=== PATIENT | male | born 1955 | race Hispanic/Latino ===

== ENCOUNTER 2017-08-12 14:21 | Emergency (ER) | payer OTHER, SELFPAY ==
[~2017-08-12 14:21] MED LIST: ISOVUE-370 76%-LOCM 1 ML ONE
[2017-08-12 15:03] LABS: #Basophils 0.1 thou/uL (0.0-0.2); #Eosinphils 0.4 thou/uL (0.0-0.7); #Lymphocytes 2.5 thou/uL (1.20-3.40); #Monocytes 0.6 thou/uL (0.11-0.59); #Neutrophils 6.5 thou/uL (1.40-6.50); %Lymphocytes 24.9 % (21.0-51.0); %Monocytes 6.3 % (0.0-10.0); %Neutrophils 63.8 % (42.0-75.0); Hemoglobin 14.2 g/dL (14.0-18.0); Mean Corpuscular HGB CONC 34.7 g/dL (32.0-36.0); Mean Corpuscular Hemoglobin 31.7 pg (27.0-31.0); Mean Corpuscular Volume 91.3 fl (80.0-94.0); Mean Platelet Volume 5.6 fL (7.4-10.4); Platelet Count 370 thou/uL (130-400); Red Blood Cell (RBC) Count 4.46 mill/uL (4.70-6.10); White Blood Cell (WBC) Count 10.1 thou/uL (4.8-10.8)
[2017-08-12 15:09] LABS: Bilirubin Negative (Negative); Blood, Urine Negative (Negative); Clarity CLEAR (Clear); Glucose, Urine (Dipstick) Negative (Negative); Leukocyte Negative (Negative); Nitrite Negative (Negative); Protein, Urine (Dipstick) Negative (Neg-Trace); Specific Gravity, Urine 1.006 (1.002-1.036); Urobilinogen 0.2 mg/dL (0.2-1.0)
[2017-08-12 15:12] LABS: Lactic Acid 1.7 mmol/L (0.5-2.2)
[2017-08-12 15:18] LABS: ALT (SGPT) 20 U/L (8-55); AST (SGOT) 21 U/L (5-34); Albumin 4.7 g/dL (3.4-4.8); Alkaline Phosphatase 109 U/L (40-150); Anion Gap 12 mmol/L (10-20); BUN (Urea Nitrogen) 14 mg/dL (8.4-25.7); Bilirubin, Total 0.5 mg/dL (0.2-1.2); Calc. Creatinine Clearance 0 mL/min (70-130); Calcium 9.5 mg/dL (7.8-10.44); Carbon Dioxide 22 mmol/L (23-31); Chloride 103 mmol/L (98-107); Estimated GFR-MDRD Greater than 90; Globulin 3.2 g/dL (2.4-3.5); Glucose 110 mg/dL (80-115); Lipase 114 U/L (8-78); Potassium 3.4 mmol/L (3.5-5.1); Protein, Total 7.9 g/dL (5.8-8.1); Sodium 134 mmol/L (136-145)
[2017-08-12] MEDS ORDERED: Morphine 4 MG/ML VIAL ONE ×3 (15:34→18:26)
[2017-08-12] MEDS ORDERED: Ondansetron HCl/PF 4 MG/2 ML Vial ONE ×2 (15:34→16:47)
--- NOTE | 2017-08-12 16:55 | CT ---
CT ABDOMEN AND PELVIS WITH IV CONTRAST 08/12/17 HISTORY: Abdominal pain. Ventral abdominal wall hernia. Patient has complained of abdominal pain for four days . COMPARISON: None available. FINDINGS: There are minimal ground glass densities at each lung base probably related to atelectasis. Calcified right hilar lymph nodes are present. Mild vascular calcifications are seen in the abdominal aorta and involving the iliac arteries. Degenerative changes are present in the spine. Calcified granulomata are seen in the liver and spleen. The pancreas, bilateral adrenal glands, right kidney, and urinary bladder demonstrate a normal CT appearance. There is a punctate nonobstructing i nferior pole left renal calculus. Left kidney otherwise has a normal CT appearance. There is colonic diverticulosis. The appendix is visualized and filled with gas and is normal in caliber. IMPRESSION: 1. No acute findings are seen in the abdomen or pelvis. 2. Punctate nonobstructing left renal calculus. 3. Colonic diverticulosis. 4. No CT evidence of appendicitis. POS: [facility]
== END 2017-08-12 18:35 | disposition home or self-care (01) ==
LOC: ERS 14:21
DX: R10.13 Epigastric pain (principal); R10.32 Left lower quadrant pain; R10.31 Right lower quadrant pain; R10.33 Periumbilical pain; R11.0 Nausea; I10 Essential (primary) hypertension; F17.210 Nicotine dependence, cigarettes, uncomplicated; Z79.82 Long term (current) use of aspirin; Z79.899 Other long term (current) drug therapy
CPT/HCPCS: 74177; 80053; 81003; 83605; 83690; 85025; 96361; 96374; 96375; 96376; J2270; J2405

== ENCOUNTER 2017-09-03 17:44 | Emergency (ER) | payer SELFPAY ==
[2017-09-03] MEDS ORDERED: Ondansetron ODT 4 MG TAB ONE (18:30)
[2017-09-03 18:31] LABS: #Basophils 0.1 thou/uL (0.0-0.2); #Eosinphils 0.3 thou/uL (0.0-0.7); #Lymphocytes 2.4 thou/uL (1.20-3.40); #Monocytes 0.6 thou/uL (0.11-0.59); #Neutrophils 5.7 thou/uL (1.40-6.50); %Basophils 0.8 % (0.0-1.0); %Eosinophils 3.4 % (0.0-10.0); %Lymphocytes 26.1 % (21.0-51.0); %Neutrophils 62.8 % (42.0-75.0); Hemoglobin 13.4 g/dL (14.0-18.0); Mean Corpuscular HGB CONC 34.6 g/dL (32.0-36.0); Mean Corpuscular Hemoglobin 31.5 pg (27.0-31.0); Mean Platelet Volume 5.7 fL (7.4-10.4); Platelet Count 384 thou/uL (130-400); Red Blood Cell (RBC) Count 4.25 mill/uL (4.70-6.10); White Blood Cell (WBC) Count 9.1 thou/uL (4.8-10.8)
[2017-09-03 18:55] LABS: ALT (SGPT) 18 U/L (8-55); AST (SGOT) 18 U/L (5-34); Albumin 4.6 g/dL (3.4-4.8); Alkaline Phosphatase 107 U/L (40-150); Anion Gap 13 mmol/L (10-20); BUN (Urea Nitrogen) 18 mg/dL (8.4-25.7); Bilirubin, Total 0.5 mg/dL (0.2-1.2); Calc. Creatinine Clearance 0 mL/min (70-130); Calcium 9.4 mg/dL (7.8-10.44); Carbon Dioxide 22 mmol/L (23-31); Chloride 106 mmol/L (98-107); Estimated GFR-MDRD Greater than 90; Globulin 3.2 g/dL (2.4-3.5); Glucose 96 mg/dL (80-115); Potassium 3.8 mmol/L (3.5-5.1); Protein, Total 7.8 g/dL (5.8-8.1); Sodium 137 mmol/L (136-145)
[2017-09-03 18:56] LABS: CKMB 1.6 ng/mL (0-6.6); Troponin I 0.024 ng/mL (< 0.028)
[2017-09-03 19:24] LABS: Bilirubin Negative (Negative); Blood, Urine Trace (Negative); Clarity CLEAR (Clear); Glucose, Urine (Dipstick) Negative (Negative); Leukocyte Negative (Negative); Nitrite Negative (Negative); Protein, Urine (Dipstick) 100 mg/dL (Neg-Trace)
[2017-09-03 19:27] LABS: Bacteria/HPF None Seen HPF (None Seen); Hyaline Casts/LPF 4-6 HYALINE CAST LPF (0-3 Hyaline); Pathc Cast-AUWi Flag 0.14 (0-2.49); Squamous Epithelial 0-3 HPF (0-3)
--- NOTE | 2017-09-03 19:50 | RAD ---
SINGLE VIEW OF THE CHEST: Comparison: 10-09-15 History: Hypertension. FINDINGS: Single view of the chest shows a normal sized cardiomediastinal silhouette. There is no evidence of c onsolidation, mass, or pleural effusion. Degenerative changes are seen in the spine. IMPRESSION: No evidence of acute cardiopulmonary disease. POS: [facility]
[2017-09-03] MEDS ORDERED: diphenhydrAMINE 50 MG/ML VIAL ONE ×2 (20:45→23:18)
[2017-09-03] MEDS ORDERED: Promethazine HCl 25 MG/ML VIAL ONE ×2 (20:45→23:18)
[2017-09-03] MEDS ORDERED: Metoprolol Tartrate 50 MG TAB ONE (20:45)
--- NOTE | 2017-09-03 22:00 | CT ---
CT BRAIN WITHOUT CONTRAST: History: Headache. Technique: Multiple contiguous axial images were obtained in a CT of the brain without contrast. FINDINGS: The brain is normal in morphology and attenuation without focal lesions or confluent areas of infarct ion. There is no evidence of hydrocephalus, intracranial hemorrhage, or extraaxial fluid collections. The calvarium and overlying soft tissues are unremarkable. The visualized paranasal sinuses and mastoids are well aerated. IMPRESSION: No evidence of acute intracranial abnormality. POS: [facility]
--- NOTE | 2017-09-03 22:02 | RAD ---
TWO VIEWS ABDOMEN AND FRONTAL VIEW OF THE CHEST: History: Left lower quadrant abdominal pain, chest pain. FINDINGS: Supine and upright views of the abdomen and upright view of the chest shows a nonspecific, nonobstruc walter bowel gas pattern. Air and stool seen throughout the colon. No free air or air fluid levels are s een in the upright examination. Cardiomediastinal silhouette is normal in size. There is no evidence of consolidation, mass, or pleur al effusion. Degenerative changes are seen in the spine. IMPRESSION: No evidence of obstruction. POS: [facility]
== END 2017-09-04 00:41 | disposition home or self-care (01) ==
LOC: ERS 17:44
DX: R51 Headache (principal); R10.9 Unspecified abdominal pain; H54.40 Blindness, one eye, unspecified eye; I10 Essential (primary) hypertension; F17.210 Nicotine dependence, cigarettes, uncomplicated; Z71.6 Tobacco abuse counseling; Z79.82 Long term (current) use of aspirin; Z79.899 Other long term (current) drug therapy
CPT/HCPCS: 36415; 70450; 71045; 74022; 80053; 81003; 81015; 82553; 84484; 85025; 93005; 96365; 96367; 96368; 96376; 99406; J1200; J2550; Q0162

== ENCOUNTER 2018-03-03 19:13 | Inpatient (IN) | payer SELFPAY ==
[2018-03-03] MEDS ORDERED: Ondansetron HCl/PF 4 MG/2 ML Vial ONE (19:23)
[2018-03-03] MEDS ORDERED: hydrALAZINE 20 MG/ML VIAL SLOW IVP SCH (19:30)
[2018-03-03 19:38] LABS: #Eosinphils 0.2 thou/uL (0.0-0.7); #Monocytes 0.4 thou/uL (0.11-0.59); #Neutrophils 4.6 thou/uL (1.40-6.50); %Basophils 0.2 % (0.0-1.0); %Eosinophils 2.8 % (0.0-10.0); %Lymphocytes 27.9 % (21.0-51.0); %Monocytes 5.4 % (0.0-10.0); %Neutrophils 63.7 % (42.0-75.0); Hemoglobin 13.8 g/dL (14.0-18.0); Mean Corpuscular HGB CONC 33.7 g/dL (32.0-36.0); Mean Corpuscular Hemoglobin 31.2 pg (27.0-31.0); Mean Corpuscular Volume 92.6 fL (78.0-98.0); Platelet Count 378 thou/uL (130-400); RBC Distribution Width 12.2 % (11.5-14.5); Red Blood Cell (RBC) Count 4.41 mill/uL (4.70-6.10); White Blood Cell (WBC) Count 7.2 thou/uL (4.8-10.8)
[2018-03-03 20:00] LABS: ALT (SGPT) 16 U/L (8-55); AST (SGOT) 18 U/L (5-34); Albumin 4.4 g/dL (3.4-4.8); Alkaline Phosphatase 124 U/L (40-150); Anion Gap 15 mmol/L (10-20); BUN (Urea Nitrogen) 13 mg/dL (8.4-25.7); Bilirubin, Total 0.6 mg/dL (0.2-1.2); Calc. Creatinine Clearance 0 mL/min (70-130); Carbon Dioxide 19 mmol/L (23-31); Chloride 103 mmol/L (98-107); Estimated GFR-MDRD Greater than 90; Globulin 3.2 g/dL (2.4-3.5); Glucose 212 mg/dL (80-115); Potassium 3.6 mmol/L (3.5-5.1); Protein, Total 7.6 g/dL (5.8-8.1); Sodium 133 mmol/L (136-145)
[2018-03-03 20:03] LABS: CKMB 1.4 ng/mL (0-6.6); Troponin I 0.025 ng/mL (< 0.028)
[2018-03-03 20:59] LABS: INR-International Normal Ratio 1.1; PTT 36.7 SEC (22.9-36.1); Prothrombin Time 13.8 SEC (12.0-14.7)
[2018-03-03] MEDS ORDERED: Metoclopramide HCl 10 MG/2 ML VIAL ONE (21:03)
[2018-03-03] MEDS ORDERED: diphenhydrAMINE 50 MG/ML VIAL IVP SCH (21:15)
--- NOTE | 2018-03-03 21:53 | RAD ---
PORTABLE CHEST: HISTORY: Syncope. COMPARISON: 09/03/2017 FINDINGS: Heart size and mediastinum are within normal limits. Lungs are clear of any infiltrates. No signifi cant bony findings. IMPRESSION: No active intrathoracic disease. POS: [facility]
[2018-03-03 22:00] LABS: Bilirubin Negative (Negative); Blood, Urine Negative (Negative); Clarity CLEAR (Clear); Glucose, Urine (Dipstick) 100 mg/dL (Negative); Leukocyte Negative (Negative); Nitrite Negative (Negative); Protein, Urine (Dipstick) Negative (Neg-Trace); Specific Gravity, Urine 1.007 (1.002-1.036); pH, Urine 7.5 (5.0-9.0)
--- NOTE | 2018-03-03 22:04 | CT ---
CT BRAIN WITHOUT CONTRAST ENHANCEMENT: HISTORY: Syncope. Headache. The patient is on Eliquis. FINDINGS: Ventricular and cisternal system is within normal limits. There are no signs of intracerebral hemorr alexia or extraaxial fluid collection. The mastoid air cells are clear. There is extensive ethmoid an d maxillary sinus mucosal disease. IMPRESSION: No acute intracranial abnormalities. POS: [facility]
[2018-03-04] MEDS ORDERED: hydrALAZINE 20 MG/ML VIAL SLOW IVP PRN (00:06)
[2018-03-04] MEDS ORDERED: Ondansetron ODT 4 MG TAB SL PRN (00:07)
[2018-03-04] MEDS ORDERED: Ondansetron HCl/PF 4 MG/2 ML Vial IVP PRN (00:07)
[2018-03-04] MEDS: Acetaminophen 325 MG TAB PO PRN ×3 (00:19→09:39)
[2018-03-04 00:43] VITALS: BMI 30.4
[2018-03-04] MEDS ORDERED: cloNIDine 0.1 MG TAB PO PRN (01:21)
[2018-03-04 04:51] LABS: #Basophils 0.1 thou/uL (0.0-0.2); #Eosinphils 0.3 thou/uL (0.0-0.7); #Lymphocytes 2.4 thou/uL (1.20-3.40); #Monocytes 0.6 thou/uL (0.11-0.59); #Neutrophils 2.7 thou/uL (1.40-6.50); %Basophils 1.1 % (0.0-1.0); %Eosinophils 5.6 % (0.0-10.0); %Lymphocytes 39.2 % (21.0-51.0); %Monocytes 10.2 % (0.0-10.0); %Neutrophils 43.9 % (42.0-75.0); Hemoglobin 12.6 g/dL (14.0-18.0); Mean Corpuscular HGB CONC 32.8 g/dL (32.0-36.0); Mean Corpuscular Hemoglobin 30.9 pg (27.0-31.0); Mean Corpuscular Volume 94.1 fL (78.0-98.0); Mean Platelet Volume 6.1 fL (7.4-10.4); Platelet Count 352 thou/uL (130-400); RBC Distribution Width 12.4 % (11.5-14.5); Red Blood Cell (RBC) Count 4.07 mill/uL (4.70-6.10); White Blood Cell (WBC) Count 6.1 thou/uL (4.8-10.8)
[2018-03-04 05:15] LABS: Anion Gap 11 mmol/L (10-20); BUN (Urea Nitrogen) 14 mg/dL (8.4-25.7); Calc. Creatinine Clearance 132 mL/min (70-130); Calcium 9.1 mg/dL (7.8-10.44); Carbon Dioxide 24 mmol/L (23-31); Cardiac Risk 4.1 (Less than 4.5); Chloride 106 mmol/L (98-107); Cholesterol 149 mg/dl (< 200 Desired); Estimated GFR-MDRD Greater than 90; Glucose 104 mg/dL (80-115); HDL Cholesterol 36 mg/dL (>60 Neg Risk); LDL Cholesterol, Calculated 93 mg/dL; Potassium 3.7 mmol/L (3.5-5.1); Sodium 137 mmol/L (136-145); Triglycerides 98 mg/dL (Less than 150)
[2018-03-04] MEDS ORDERED: Metoprolol Tartrate 100 MG TAB PO SCH (09:00)
[2018-03-04] MEDS ORDERED: Hydrochlorothiazide 25 MG TAB PO SCH (09:00)
[2018-03-04] MEDS ORDERED: Losartan 25 MG TAB PO SCH (09:00)
[2018-03-04] MEDS ORDERED: Aspirin 325 mg Enteric Coated Tablet PO SCH (09:00)
[2018-03-04] MEDS ORDERED: Enoxaparin Sodium 40 MG/0.4 ML SYRINGE SC SCH (09:00)
--- NOTE | 2018-03-04 10:33 | ULT ---
BILATERAL CAROTID DUPLEX ULTRASOUND INCLUDING COLOR AND SPECTRAL DOPPLER IMAGING: DATE: 03/04/18 HISTORY: 72-year-old male with history of TIA. FINDINGS: There is visual plaque noted in the distal left CCA. PSV Right ICA: 114 cm/sec EDV: 28 cm/sec ICA/CCA Ratio: 0.8 PSV Left ICA: 97 cm/sec EDV: 31 cm/sec ICA/CCA Ratio: 0.6 Vertebral flow is antegrade. Increased velocities in both right and left ECAs. IMPRESSION: No hemodynamically significant stenosis. Stenotic changes involving the right and left ECAs. Plaque i n the distal left CCA, evidence for atherosclerotic carotid vascular disease. POS: [facility]
--- NOTE | 2018-03-04 10:48 | MRI ---
BRAIN MRI NONCONTRAST: Date: 03/04/18 INDICATION: TIA. Reference made to head CT from preceding day. FINDINGS: There is no acute territorial infarction, intracranial mass effect, or midline shift. Ventricular sys tem is normal in size. Imaged skull base flow-voids are maintained. There is a scleral band on the le ft with associated elongation of the left globe. The port gamble left intraocular lens is absent. There is no hemorrhagic intracranial susceptibility artifact. Mild chronic ischemic disease is present within the bilateral cerebral hemispheres. There is scattered paranasal sinus mucosal thickening. IMPRESSION: 1. No acute territorial infarction or mass effect. 2. Mild chronic ischemic disease. POS: [facility]
[2018-03-04 11:59] VITALS: TEMP 98.5
[2018-03-04 14:51] VITALS: BP 142/66
--- NOTE | 2018-03-04 15:43 | CON ---
DATE OF CONSULTATION: 03/04/2018 REFERRING PHYSICIAN: Hospitalist Service. IMPRESSION: 1. Probable hypertensive crisis. 2. Possible diabetes. 3. Hypertension. 4. Hyperlipidemia. PLAN: 1. Continue aspirin. 2. Continue statin. 3. Blood pressure management. 4. Possible blood sugar management. Mr. Middleton is a 62-year-old man with a known history of hypertension. He reports that he started developing a throbbing headache. He noted that his blood pressure was elevated. He started experiencing a feeling of numbness involving the left face, arm, and leg. There is no associated slu rred speech or paralysis. His symptoms have improved since yesterday, but he reports there is still a slight abnormal sensation in the foot and hand. He had an MRI of the brain done, which does not re veal any evidence of ischemic injury. His carotid Doppler shows no evidence of stenosis. His labora tory studies were notable for a blood sugar of 212. He denies any past history of similar events. PAST MEDICAL HISTORY: As listed above. ALLERGIES: None. MEDICATION LIST: Reviewed. SOCIAL HISTORY: No illicit drug use. FAMILY HISTORY: Noncontributory. REVIEW OF SYSTEMS: No complaint of headache, nausea, dizziness, double vision, chest pain, or shortn ess of breath. PHYSICAL EXAMINATION: VITAL SIGNS: Blood pressure 188/92, pulse 60, respirations 16, temperature 98.5. HEENT: Pupils equal and reactive. Conjunctivae clear. Oropharynx clear. NECK: Supple. EXTREMITIES: No cyanosis. NEUROLOGIC EXAM: He is alert and oriented x3. Speech is fluent and clear. There is no facial asymm etry. There was no fix or drift. Sensation was subjectively altered in the left hand and foot. Cer ebellar testing showed no evidence of tremor or dysmetria. He can walk independently. SUMMARY: This is a 62-year-old man, who presented with hypertension, resulting in secondary throbbin g headache and transient numbness of the left side. I suspect that this is more of a vasospastic mari nt rather than an ischemic event. There is no evidence of injury on MRI. Continue aspirin and stati n.
[2018-03-04] MEDS ORDERED: Atorvastatin Calcium 40 MG TAB PO SCH (21:00)
--- NOTE | 2018-03-04 22:19 | DIS ---
DATE OF ADMISSION: 03/03/2018 DATE OF DISCHARGE: 03/04/2018 DISCHARGE DIAGNOSES: 1. Hypertensive urgency, resolved. 2. Hypertension, poorly controlled due to medication noncompliance. 3. Left upper extremity paresthesias. 4. Dyslipidemia. 5. Tobacco abuse. CONSULTATIONS: Daryl Cedeno MD with Neurology Service. PERTINENT LABORATORY AND X-RAY FINDINGS: Basic metabolic profile within normal limits. Total CK of 96. Troponin I negative x1. Total cholesterol 149, triglycerides 98, HDL 36, LDL 93. CBC showed a hemoglobin ranging between 12.6-13.8. Urine culture dated 03/03/2018 showed no growth at [address] of the brain without contrast dated 03/03/2018 showed no acute intracranial process. MRI of the b rain dated 03/04/2018 showed no acute intracranial process. Mild chronic ischemic white matter shields es noted. Carotid Doppler study dated 03/04/2018 showed no hemodynamically significant stenosis with carotid plaques bilaterally. HOSPITAL COURSE: The patient was admitted after presenting with left upper extremity paresthesias an d hypertensive urgency after noncompliance with chronic antihypertensive regimen. The patient was pl aced on aspirin, hydralazine; and initiated on clonidine, HCTZ, Cozaar, and metoprolol during the hos pital course. The patient's overall blood pressure trend improved with restarting home blood pressur e regimen and general supportive management. The patient will need additional titration of his antih ypertensive regimen on an ongoing basis after discharge. The patient also underwent general stroke w orkup with no acute intracranial process identified by CT or MRI imaging. The patient was cautioned regarding inconsistent blood pressure management and its ramifications for a potential stroke in the future. Telemetry monitoring showed sinus mechanism without evidence of acute arrhythmia or dysrhyth rosa. I have examined the patient at the time of discharge and discussed followup instructions. The patient overall clinically stable and ready for discharge 03/04/2018. DISCHARGE MEDICATIONS: 1. Enteric-coated aspirin 81 mg 1 tab p.o. daily. 2. Hydrochlorothiazide 25 mg p.o. daily. 3. Losartan 50 mg p.o. daily. 4. Metoprolol tartrate 100 mg p.o. b.i.d. 5. Pravachol 40 mg p.o. at bedtime. FOLLOWUP: The patient will follow up with [facility] in [place], [place] in 7 days. CONDITION ON DISCHARGE: Stable. ACTIVITY: Ad dontrell. DIET: Heart healthy. CODE STATUS: Full. DISPOSITION: Home, 03/04/2018.
--- NOTE | 2018-03-05 13:59 | HP ---
PRIMARY CARE DOCTOR FOR THIS PATIENT: The patient is a [employer]. CODE STATUS: FULL CODE. TIME OF EVALUATION: 12:10 a.m. CHIEF COMPLAINT: High blood pressure and left-sided numbness. HISTORY OF PRESENT ILLNESS: This is a 62-year-old male patient with past medical history of hyperten shantel, noncompliance, came to the hospital after having left-sided weakness and tingling and very high blood pressure. The patient reported that everything started when he was having an argument at home and blood pressure went very high. Of note, the patient has been noncompliant. He reported he has been unable to obtain medications. There are no alleviating factors other than the medications given in the ER. These symptoms are still present and has been on for hours. REVIEW OF SYSTEMS: Constitutional: No fever, chills or generalized weakness. Respiratory: No coug h, sputum production or shortness of breath. Cardiovascular: Hypertension. No chest pain, palpitat ion. Gastrointestinal: No nausea, no vomiting, diarrhea or abdominal pain. 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 The patient has no lightheadedness. Genitourinary: No burn ing on urination. Extremities: No leg swelling. All other systems were reviewed and negative excep t for the findings mentioned above. PAST MEDICAL HISTORY: Positive for hypertension. PAST SURGICAL HISTORY: No surgical history. PSYCHIATRIC HISTORY: No psych history. SOCIAL HISTORY: Drinks socially. No drugs or alcohol. No cigarettes. KNOWN ALLERGIES: No known drug allergy. REPORTED MEDICATIONS: None. PHYSICAL EXAMINATION: VITAL SIGNS: On presentation, blood pressure 214/111, with a heart rate of 116, respiratory rate was 22, temperature 98.7, pain 6/10, O2 saturation was 98. GENERAL APPEARANCE: The patient is alert, oriented, not in acute distress. HEENT: Eyes; normal conjunctivae, moist oral mucosa. Anicteric. NECK: No JVD. RESPIRATORY: Bilateral air entry. No rales, no wheezes. Symmetric expansion. CARDIOVASCULAR: Normal rate, regular rhythm. No murmurs, no gallop, no edema. Hypertensive. ABDOMEN: Soft, normal bowel sounds. MUSCULOSKELETAL: Baseline range of motion and strength. No tenderness. SKIN: Warm and intact. No pallor, no rash or redness. Peripheral pulses are present. Capillary re fill seems to be intact. NEUROLOGIC: The patient has left-sided weakness that is mild with a strength 4/5. Cranial nerve see ms to be intact. PSYCHIATRIC: The patient is in a good mood. No anxiety. Oriented, optimal judgment. IMAGING: EKG was reviewed. The patient has sinus tachycardia at the rate of 111, ST normal. There was normal left ventricular hypertrophy with repolarization abnormality. This was discussed with per forming physician from ER. Head CT was negative. LABORATORY DATA: Labs were reviewed. White count 7.2, hemoglobin 13.8, MCV 92, platelet count 378. Coagulation was normal. Chemistry: Sodium 133, potassium 3.3, chloride 103, carbon dioxide 18, BUN 13, creatinine 0.81, GFR greater than 90, glucose 212. Troponin was negative. LFTs were negative. ASSESSMENT AND PLAN: The patient was placed in the hospital with following medical problem: 1. Hypertensive emergency. On presentation, blood pressure was 200/110. The patient had neurologic al symptoms, left-sided weakness, and blood pressure was controlled. On initial presentation, the mo st likely reason is noncompliance. Also, patient got into an argument. We will continue to monitor blood pressure. Try to get it below 150, I have advised the patient to be compliant and also asked c ase management to see if there is any help for him to get his medication. 2. Possible transient ischemic attack, given presentation with left-sided weakness. Symptoms have i mproved, but are still present. We will do a stroke protocol. We will follow result. We will treat accordingly. 3. Morbid obesity. The patient advised to lose weight. 4. Hyponatremia, sodium 133, this is mild, actually has resolved and the repeat labs in the morning. No need for any acute intervention. 5. Mild metabolic acidosis with CO2 of 19 also has resolved. No need for any acute intervention. 6. Hyperglycemia. The patient presented with blood sugar 212, unclear etiology, this also has resol irais and could be secondary to acute physical distress. We will monitor. We will treat accordingly. 7. Deep venous thrombosis prophylaxis. 8. Medical noncompliance. I advised the patient to compliant with his blood pressure medications.
== END 2018-03-04 14:47 | disposition home or self-care (01) | DRG 305 ==
LOC: ERS 19:13 → 2SE 22:15
PROVIDERS: ADMIT Hospitalist; ATTEND Hospitalist
DX: I16.0 Hypertensive urgency (principal); E87.1 Hypo-osmolality and hyponatremia; E87.2 Acidosis; E78.5 Hyperlipidemia, unspecified; R20.2 Paresthesia of skin; E66.01 Morbid (severe) obesity due to excess calories; R73.9 Hyperglycemia, unspecified; F17.210 Nicotine dependence, cigarettes, uncomplicated; Z91.14 Patient's other noncompliance with medication regimen
CPT/HCPCS: 36415; 36416; 70450; 70551; 71045; 80048; 80053; 80061; 81003; 82553; 84484; 85025; 85610; 85730; 87086; 93005; 93306; 93880; 96374; 96375; G8978-GP-CI; G8979-GP-CH; G8996-GN-CH; G8997-GN-CH; J0360; J1200; J1650; J2405; J2765

== ENCOUNTER 2023-10-23 09:34 | Inpatient (IN) | payer MEDICARE ==
[~2023-10-23 09:34] MED LIST changes: -ISOVUE-370 76%-LOCM 1 ML ONE; +Iopamidol-370 76% 500 ML MDV (1 ML CHARGE) ONE
[2023-10-23 09:59] LABS: #Basophils 0.05 10x3/uL (0.0-0.2); %Basophils 0.5 % (0.0-1.0); %Eosinophils 4.7 % (0.0-10.0); %Lymphocytes 22.4 % (21.0-51.0); %Monocytes 5.6 % (0.0-10.0); %Neutrophils 66.5 % (42.0-75.0); Hematocrit 30.7 % (42.0-52.0); Hemoglobin 10.7 g/dL (14.0-18.0); Mean Corpuscular HGB CONC 34.9 g/dL (32.0-36.0); Mean Corpuscular Hemoglobin 30.4 pg (27.0-31.0); Mean Corpuscular Volume 87.2 fL (78.0-98.0); Mean Platelet Volume 8.7 fL (7.4-10.4); Platelet Count 370 10x3/uL (130-400); RBC Distribution Width 14.1 % (11.5-14.5); Red Blood Cell (RBC) Count 3.52 mill/uL (4.70-6.10)
[2023-10-23] MEDS ORDERED: Metoprolol Tartrate 5 MG (5 mL) VIAL ONE (10:04)
[2023-10-23] MEDS ORDERED: Ondansetron PF 4 MG/2 ML Vial ONE (10:04)
[2023-10-23 10:14] LABS: ALT (SGPT) 12 U/L (8-55); AST (SGOT) 15 U/L (5-34); Albumin 4.1 g/dL (3.4-4.8); Alkaline Phosphatase 130 U/L (40-110); Anion Gap 17 mmol/L (10-20); BUN (Urea Nitrogen) 28 mg/dL (8.4-25.7); Bilirubin, Total 0.6 mg/dL (0.2-1.2); Calc. Creatinine Clearance 0 mL/min (70-130); Calcium 10.1 mg/dL (7.8-10.44); Carbon Dioxide 20 mmol/L (23-31); Chloride 106 mmol/L (98-107); Estimated GFR 65; Globulin 4.2 g/dL (2.4-3.5); Glucose 250 mg/dL (80-115); Lipase 33 U/L (8-78); Magnesium 1.7 mg/dL (1.6-2.6); Potassium 3.5 mmol/L (3.5-5.1); Protein, Total 8.3 g/dL (5.8-8.1); Sodium 139 mmol/L (136-145)
[2023-10-23 10:18] LABS: INR-International Normal Ratio 1.1; PTT 37.1 sec (22.9-36.1); Prothrombin Time 13.8 sec (12.0-14.7)
[2023-10-23 10:41] LABS: Troponin I 0.219 ng/mL (< 0.028)
[2023-10-23] MEDS ORDERED: Aspirin Chewable 81 MG TAB ONE (10:42)
[2023-10-23] MEDS ORDERED: Nitroglycerin 2% Ointment 1 INCH/1 GM Packet ONE ×2 (10:42→10:43)
[2023-10-23] MEDS ORDERED: Morphine 4 MG/ML VIAL ONE (10:42)
[2023-10-23 12:03] VITALS: BMI 30.3
[2023-10-23] MEDS ORDERED: Enoxaparin 100 MG (1 mL) SYRINGE ONE (12:37)
[2023-10-23] MEDS ORDERED: Ondansetron ODT 4 MG TAB PO PRN (13:19)
[2023-10-23] MEDS ORDERED: Senokot S 8.6-50 MG TAB PO PRN (13:19)
[2023-10-23] MEDS ORDERED: Bisacodyl 5 MG TAB PO PRN (13:19)
[2023-10-23] MEDS ORDERED: Acetaminophen 650 MG Suppository PR PRN (13:19)
[2023-10-23] MEDS ORDERED: Ondansetron PF 4 MG/2 ML Vial IVP PRN (13:19)
[2023-10-23] MEDS: cloNIDine 0.2 MG TAB PO SCH (15:10)
[2023-10-23] MEDS: Amlodipine 10 MG TAB PO SCH (15:11)
[2023-10-23 17:07] LABS: Critical Call Chem Troponin I NUR.NS4 @1707; Troponin I 0.285 ng/mL (< 0.028)
[2023-10-23] MEDS: Nitroglycerin 0.4 MG TAB (25 Tab Bottle) SL PRN (17:44)
[2023-10-23] MEDS: hydrALAZINE 25 MG TAB PO SCH (17:44)
[2023-10-23] MEDS: Morphine 4 MG/ML VIAL SLOW IVP SCH (18:58)
[2023-10-23] MEDS: Nitroglycerin 2% Ointment 1 INCH/1 GM Packet TOP SCH (18:59)
[2023-10-23] MEDS: Famotidine 20 MG TAB PO SCH (20:59)
[2023-10-23] MEDS: Metoprolol Tartrate 50 MG TAB PO SCH (20:59)
[2023-10-23] MEDS: Atorvastatin Calcium 40 MG TAB PO SCH (20:59)
[2023-10-23] MEDS ORDERED: Metoprolol Tartrate 25 MG TAB PO SCH (21:00)
[2023-10-23 23:05] LABS: Critical Call Chem Troponin I NUR.CG9@2305; Troponin I 0.493 ng/mL (< 0.028)
[2023-10-24] MEDS: Morphine 4 MG/ML VIAL SLOW IVP SCH (00:32)
[2023-10-24 04:28] LABS: #Basophils 0.05 10x3/uL (0.0-0.2); %Basophils 0.7 % (0.0-1.0); %Eosinophils 6.4 % (0.0-10.0); %Lymphocytes 29.1 % (21.0-51.0); %Monocytes 9.3 % (0.0-10.0); %Neutrophils 54.2 % (42.0-75.0); Hematocrit 28.9 % (42.0-52.0); Hemoglobin 9.6 g/dL (14.0-18.0); Mean Corpuscular HGB CONC 33.2 g/dL (32.0-36.0); Mean Corpuscular Hemoglobin 29.6 pg (27.0-31.0); Mean Corpuscular Volume 89.2 fL (78.0-98.0); Mean Platelet Volume 8.8 fL (7.4-10.4); Platelet Count 321 10x3/uL (130-400); RBC Distribution Width 14.4 % (11.5-14.5); Red Blood Cell (RBC) Count 3.24 mill/uL (4.70-6.10)
[2023-10-24 04:58] LABS: Anion Gap 17 mmol/L (10-20); BUN (Urea Nitrogen) 26 mg/dL (8.4-25.7); Calc. Creatinine Clearance 79 mL/min (70-130); Calcium 9.2 mg/dL (7.8-10.44); Carbon Dioxide 20 mmol/L (23-31); Cardiac Risk 3.5 (Less than 4.5); Chloride 107 mmol/L (98-107); Cholesterol 97 mg/dl (< 200 Desired); Estimated GFR 65; Glucose 150 mg/dL (80-115); HDL Cholesterol 28 mg/dL (>60 Neg Risk); LDL Cholesterol, Calculated 48 mg/dL; Magnesium 1.8 mg/dL (1.6-2.6); Potassium 3.9 mmol/L (3.5-5.1); Sodium 140 mmol/L (136-145); Triglycerides 103 mg/dL (Less than 150)
[2023-10-24] MEDS ORDERED: Insulin Regular 300 UNITS/3 ML VIAL SC PRN ×2 (07:39)
[2023-10-24] MEDS ORDERED: Dextrose 5% in Water 1,000 ML IV PRN (07:39)
[2023-10-24] MEDS ORDERED: Dextrose 50% Abboject 50 ML SYRINGE SLOW IVP PRN (07:39)
[2023-10-24] MEDS ORDERED: Glucagon 1 MG/ML KIT IM PRN (07:39)
[2023-10-24] MEDS ORDERED: Insulin Regular, Human 100 UNIT/ML 10 ML VIAL SC PRN ×2 (07:41)
[2023-10-24] MEDS ORDERED: Aspirin 81 mg Enteric Coated Tablet PO SCH (09:00)
[2023-10-24] MEDS: Aspirin 325 MG TAB PO SCH (09:24)
[2023-10-24] MEDS: Amlodipine 10 MG TAB PO SCH (09:24)
[2023-10-24] MEDS: Isosorbide Mononitrate 60 MG ER.TAB PO SCH (09:25)
[2023-10-24] MEDS: Metoprolol Tartrate 50 MG TAB PO SCH (09:25)
[2023-10-24] MEDS: hydrALAZINE 25 MG TAB PO SCH (09:25)
[2023-10-24] MEDS: Ranolazine ER 500 MG TAB PO SCH ×2 (11:52→21:09)
[2023-10-24 12:05] LABS: Critical Call Chem Troponin I TRENDING DOWN; Troponin I 0.488 ng/mL (< 0.028)
[2023-10-24] MEDS: Acetaminophen 325 MG TAB PO PRN (13:16)
[2023-10-24] MEDS: metFORMIN 500 MG TAB PO SCH (16:15)
[2023-10-24] MEDS: Cilostazol 100 MG TAB PO SCH (16:15)
[2023-10-25 04:11] LABS: #Basophils 0.04 10x3/uL (0.0-0.2); %Basophils 0.5 % (0.0-1.0); %Eosinophils 5.1 % (0.0-10.0); %Lymphocytes 23.7 % (21.0-51.0); %Monocytes 6.5 % (0.0-10.0); %Neutrophils 64.1 % (42.0-75.0); Hematocrit 26.3 % (42.0-52.0); Hemoglobin 8.8 g/dL (14.0-18.0); Mean Corpuscular HGB CONC 33.5 g/dL (32.0-36.0); Mean Corpuscular Hemoglobin 30.4 pg (27.0-31.0); Mean Platelet Volume 8.9 fL (7.4-10.4); Platelet Count 310 10x3/uL (130-400); RBC Distribution Width 14.1 % (11.5-14.5); Red Blood Cell (RBC) Count 2.89 mill/uL (4.70-6.10)
[2023-10-25 04:27] LABS: Hemoglobin A1c 8.8 % (4.0-6.0)
[2023-10-25 04:29] LABS: Anion Gap 17 mmol/L (10-20); BUN (Urea Nitrogen) 29 mg/dL (8.4-25.7); Calc. Creatinine Clearance 91 mL/min (70-130); Calcium 9.1 mg/dL (7.8-10.44); Carbon Dioxide 20 mmol/L (23-31); Chloride 106 mmol/L (98-107); Estimated GFR 77; Glucose 133 mg/dL (80-115); Potassium 3.7 mmol/L (3.5-5.1); Sodium 139 mmol/L (136-145)
[2023-10-25 08:18] VITALS: BP 157/72; TEMP 98.1
[2023-10-25] MEDS: metFORMIN 500 MG TAB PO SCH (08:58)
[2023-10-25] MEDS ORDERED: metFORMIN 500 MG TAB PO SCH (17:00)
[2023-10-25] MEDS ORDERED: Carvedilol 6.25 MG TAB PO SCH (21:00)
[2023-10-26] MEDS ORDERED: Amlodipine 5 MG TAB PO SCH (09:00)
== END 2023-10-25 11:04 | disposition home or self-care (01) | DRG 282 ==
LOC: ERS 09:34 → ERHOLD 11:41 → 2NO 13:48
PROVIDERS: ADMIT Internal Medicine; ATTEND Family Medicine
DX: I21.4 Non-ST elevation (NSTEMI) myocardial infarction (principal); I25.10 Atherosclerotic heart disease of native coronary artery without angina pectoris; Z95.5 Presence of coronary angioplasty implant and graft; E78.00 Pure hypercholesterolemia, unspecified; I10 Essential (primary) hypertension; I16.0 Hypertensive urgency; Z79.84 Long term (current) use of oral hypoglycemic drugs; Z86.73 Personal history of transient ischemic attack (TIA), and cerebral infarction without residual deficits; E11.51 Type 2 diabetes mellitus with diabetic peripheral angiopathy without gangrene; F17.210 Nicotine dependence, cigarettes, uncomplicated; Z71.6 Tobacco abuse counseling; H54.40 Blindness, one eye, unspecified eye
CPT/HCPCS: 36415; 36416; 70450; 71045; 71275; 80048; 80053; 80061; 83036; 83690; 83735; 84443; 84484; 85025; 85610; 85730; 93005; 93010; 93798; 96372; 96374; 96375; J1650; J2270; J2405; Q9967

== ENCOUNTER 2024-02-14 09:43 | Outpatient (CLI) | payer MEDICARE, OTHER | END 2024-02-14 09:44 | disposition home or self-care (01) | LOC: DTY/OP 09:43 | PROVIDERS: ATTEND Nurse Practitioner Family | DX: E11.9 Type 2 diabetes mellitus without complications (principal) | CPT/HCPCS: 97802 ==

== ENCOUNTER 2024-03-07 11:30 | Outpatient (CLI) | payer MEDICARE | END 2024-03-07 11:31 | disposition home or self-care (01) | LOC: BICCT 11:30 | PROVIDERS: ATTEND Family Medicine | DX: Z12.2 Encounter for screening for malignant neoplasm of respiratory organs (principal); Z87.891 Personal history of nicotine dependence | CPT/HCPCS: 71271 ==

== ENCOUNTER 2024-06-17 15:06 | Observation (INO) | payer MEDICARE ==
[2024-06-17 16:01] LABS: #Basophils 0.05 10x3/uL (0.0-0.2); %Basophils 0.6 % (0.0-1.0); %Eosinophils 3.1 % (0.0-10.0); %Lymphocytes 20.1 % (21.0-51.0); %Monocytes 8.8 % (0.0-10.0); %Neutrophils 66.8 % (42.0-75.0); Hematocrit 28.4 % (42.0-52.0); Hemoglobin 9.2 g/dL (14.0-18.0); Mean Corpuscular HGB CONC 32.4 g/dL (32.0-36.0); Mean Corpuscular Hemoglobin 28.8 pg (27.0-31.0); Mean Platelet Volume 8.2 fL (7.4-10.4); Platelet Count 453 10x3/uL (130-400); RBC Distribution Width 13.2 % (11.5-14.5); Red Blood Cell (RBC) Count 3.19 mill/uL (4.70-6.10)
[2024-06-17 16:34] LABS: ALT (SGPT) 14 U/L (Less than 45); AST (SGOT) 19 U/L (11-34); Albumin 3.7 g/dL (3.1-4.5); Alkaline Phosphatase 109 U/L (40-110); Anion Gap 18 mmol/L (10-20); BUN (Urea Nitrogen) 31 mg/dL (8.4-25.7); Bilirubin, Total 0.3 mg/dL (0.3-1.2); Calc. Creatinine Clearance 0 mL/min (70-130); Calcium 9.5 mg/dL (7.8-10.44); Carbon Dioxide 19 mmol/L (23-31); Chloride 103 mmol/L (98-107); Estimated GFR 57; Globulin 4.1 g/dL (2.4-3.5); Glucose 118 mg/dL (80-115); Potassium 3.6 mmol/L (3.5-5.1); Protein, Total 7.8 g/dL (5.8-8.1); Sodium 136 mmol/L (136-145)
[2024-06-17] MEDS ORDERED: Mag-Al 1200 mg/1200 mg/30 ML UDCUP ONE (16:50)
[2024-06-17] MEDS ORDERED: Lidocaine Viscous Sol 2% 15 ml UD Cup ONE (16:50)
[2024-06-17 17:16] LABS: Lipase 40 U/L (8-78); Magnesium 1.9 mg/dL (1.6-2.6)
[2024-06-17] MEDS ORDERED: Famotidine/PF 20 mg/2ml Vial ONE (17:34)
[2024-06-17 17:36] LABS: Troponin I 0.109 ng/mL (< 0.028)
[2024-06-17] MEDS ORDERED: Morphine 4 MG/ML VIAL ONE ×2 (18:38→20:38)
[2024-06-17 22:51] VITALS: BMI 39.2
[2024-06-17] MEDS ORDERED: Insulin Lispro 100 UNIT/ML 10 ML VIAL SC PRN (22:57)
[2024-06-17] MEDS ORDERED: Dextrose 5% in Water 1,000 ML IV PRN (22:57)
[2024-06-17] MEDS ORDERED: Ondansetron ODT 4 MG TAB PO PRN (22:57)
[2024-06-17] MEDS ORDERED: Dextrose 50% Abboject 50 ML SYRINGE SLOW IVP PRN (22:57)
[2024-06-17] MEDS ORDERED: Acetaminophen 650 MG Suppository PR PRN (22:57)
[2024-06-17] MEDS ORDERED: Glucagon 1 MG/ML KIT IM PRN (22:57)
[2024-06-17] MEDS ORDERED: Senokot S 8.6-50 MG TAB PO PRN (22:57)
[2024-06-17] MEDS ORDERED: Ondansetron PF 4 MG/2 ML Vial IVP PRN (22:57)
[2024-06-18 00:07] LABS: Troponin I 0.091 ng/mL (< 0.028)
[2024-06-18] MEDS: Lidocaine 2% Viscous Solution 10 ML, Aluminum & Magnesium Hydroxide 30 ML SSW SCH (00:11)
[2024-06-18 05:24] LABS: #Basophils 0.04 10x3/uL (0.0-0.2); %Basophils 0.6 % (0.0-1.0); %Eosinophils 3.6 % (0.0-10.0); %Lymphocytes 22.8 % (21.0-51.0); %Monocytes 10.4 % (0.0-10.0); %Neutrophils 62.3 % (42.0-75.0); Hematocrit 26.3 % (42.0-52.0); Hemoglobin 8.4 g/dL (14.0-18.0); Mean Corpuscular HGB CONC 31.9 g/dL (32.0-36.0); Mean Corpuscular Volume 90.7 fL (78.0-98.0); Mean Platelet Volume 8.2 fL (7.4-10.4); Platelet Count 372 10x3/uL (130-400); RBC Distribution Width 13.2 % (11.5-14.5)
[2024-06-18 05:42] LABS: Troponin I 0.096 ng/mL (< 0.028)
[2024-06-18 06:01] LABS: Anion Gap 13 mmol/L (10-20); BUN (Urea Nitrogen) 26 mg/dL (8.4-25.7); Calc. Creatinine Clearance 99 mL/min (70-130); Calcium 8.5 mg/dL (7.8-10.44); Carbon Dioxide 23 mmol/L (23-31); Chloride 105 mmol/L (98-107); Estimated GFR 68; Glucose 174 mg/dL (80-115); Potassium 3.7 mmol/L (3.5-5.1); Sodium 137 mmol/L (136-145)
[2024-06-18] MEDS: Isosorbide Mononitrate 60 MG ER.TAB PO SCH (08:43)
[2024-06-18] MEDS: Ranolazine ER 500 MG TAB PO SCH (08:44)
[2024-06-18] MEDS: Aspirin 325 MG TAB PO SCH (08:44)
[2024-06-18] MEDS: Pantoprazole 40 MG DR.TAB PO SCH (08:44)
[2024-06-18] MEDS: Cilostazol 100 MG TAB PO SCH (08:44)
[2024-06-18] MEDS: Metoprolol Tartrate 50 MG TAB PO SCH (08:44)
[2024-06-18] MEDS: Acetaminophen 325 MG TAB PO PRN (08:45)
[2024-06-18] MEDS: Clopidogrel Bisulfate 75 MG TAB PO SCH (08:46)
[2024-06-18] MEDS ORDERED: Docusate 100 MG CAP PO PRN (09:58)
[2024-06-18] MEDS ORDERED: Polyethylene Glycol 3350 17 GM Packet PO PRN (09:58)
[2024-06-18 11:04] VITALS: BP 142/77; TEMP 98.4
[2024-06-18] MEDS: Docusate 100 MG CAP PO SCH (11:22)
[2024-06-18] MEDS: Insulin Lispro 100 UNIT/ML 10 ML VIAL SC PRN (11:22)
[2024-06-18] MEDS: Polyethylene Glycol 3350 17 GM Packet PO SCH (11:22)
[2024-06-18] MEDS ORDERED: Non-Formulary Item 1 EACH (Atorvastatin Calcium [Lipitor] 80 MG Tablet) PO SCH (21:00)
[2024-06-18] MEDS ORDERED: Atorvastatin Calcium 40 MG TAB PO SCH (21:00)
[2024-06-19] MEDS ORDERED: FLU (Fluad Triv) TS24-25 (65UP)/MF59C/PF 45 MCG/0.5 ML Syringe IM ONE (09:00)
== END 2024-06-18 13:58 | disposition home or self-care (01) ==
LOC: ERS 15:06 → OBS 22:00
PROVIDERS: ADMIT Internal Medicine; ATTEND Internal Medicine
DX: R07.89 Other chest pain (principal); R10.13 Epigastric pain; I10 Essential (primary) hypertension; I25.10 Atherosclerotic heart disease of native coronary artery without angina pectoris; E11.51 Type 2 diabetes mellitus with diabetic peripheral angiopathy without gangrene; E78.5 Hyperlipidemia, unspecified; N17.9 Acute kidney failure, unspecified; H54.7 Unspecified visual loss; D64.9 Anemia, unspecified; Z87.891 Personal history of nicotine dependence; Z86.73 Personal history of transient ischemic attack (TIA), and cerebral infarction without residual deficits; Z95.5 Presence of coronary angioplasty implant and graft; Z79.84 Long term (current) use of oral hypoglycemic drugs; Z79.82 Long term (current) use of aspirin; Z79.02 Long term (current) use of antithrombotics/antiplatelets; Z79.899 Other long term (current) drug therapy
CPT/HCPCS: 71045; 76705; 80048; 80053; 82962; 83690; 83735; 83880; 84484 ×3; 85025 ×2; 93005; 96374; 96375; 96376; 99285; G0378 ×3; J1815; J2270; J3490; 36415; 36416

== ENCOUNTER 2024-12-17 18:19 | Emergency (ER) | payer MEDICARE ==
[2024-12-17 19:02] LABS: #Basophils 0.03 10x3/uL (0.0-0.2); #Eosinophils 0.25 10x3/uL (0.0-0.7); #Monocytes 0.54 10x3/uL (0.11-0.59); #Neutrophils 5.25 10x3/uL (1.40-6.50); %Basophils 0.4 % (0.0-1.0); %Eosinophils 3.3 % (0.0-10.0); %Lymphocytes 18.9 % (21.0-51.0); %Monocytes 7.2 % (0.0-10.0); %Neutrophils 69.7 % (42.0-75.0); Hematocrit 23.5 % (42.0-52.0); Hemoglobin 7.2 g/dL (14.0-18.0); Mean Corpuscular Hemoglobin 24.0 pg (27.0-31.0); Mean Corpuscular Volume 78.3 fL (78.0-98.0); Platelet Count 452 10x3/uL (130-400); Red Blood Cell (RBC) Count 3.00 mill/uL (4.70-6.10); White Blood Cell (WBC) Count 7.53 10x3/uL (4.8-10.8)
[2024-12-17 19:18] LABS: ALT (SGPT) 8 U/L (Less than 45); AST (SGOT) 22 U/L (11-34); Albumin 4.0 g/dL (3.1-4.5); Alkaline Phosphatase 110 U/L (40-110); Anion Gap 14 mmol/L (10-20); BUN (Urea Nitrogen) 15 mg/dL (8.4-25.7); Bilirubin, Total 0.2 mg/dL (0.3-1.2); Calc. Creatinine Clearance 0 mL/min (70-130); Calcium 9.0 mg/dL (7.8-10.44); Carbon Dioxide 18 mmol/L (23-31); Chloride 108 mmol/L (98-107); Globulin 3.9 g/dL (2.4-3.5); Glucose 123 mg/dL (80-115); Potassium 4.2 mmol/L (3.5-5.1); Sodium 136 mmol/L (136-145)
[2024-12-17 20:27] LABS: Troponin I 0.043 ng/mL (< 0.028)
== END 2024-12-17 23:48 | disposition home or self-care (01) ==
LOC: ERS 18:19
DX: D64.9 Anemia, unspecified (principal); E11.9 Type 2 diabetes mellitus without complications; I50.9 Heart failure, unspecified; I11.0 Hypertensive heart disease with heart failure; E78.5 Hyperlipidemia, unspecified; F17.210 Nicotine dependence, cigarettes, uncomplicated; Z79.84 Long term (current) use of oral hypoglycemic drugs; Z79.82 Long term (current) use of aspirin; Z79.899 Other long term (current) drug therapy; Z51.81 Encounter for therapeutic drug level monitoring; D50.9 Iron deficiency anemia, unspecified; E78.2 Mixed hyperlipidemia
CPT/HCPCS: 36430; 71045; 80053; 83880; 84484; 85025; 86850; 86900; 86901; 86920; 93005; 99285; P9040; 36415; 80061; 82728; 83036; 83540; 83550

== ENCOUNTER 2024-12-31 07:42 | Outpatient (CLI) | payer MEDICARE | END 2024-12-31 07:43 | disposition home or self-care (01) | LOC: ULT 07:42 | PROVIDERS: ATTEND Family Medicine | DX: M79.605 Pain in left leg (principal); R09.89 Other specified symptoms and signs involving the circulatory and respiratory systems; Z87.891 Personal history of nicotine dependence | CPT/HCPCS: 93922 ==

== ENCOUNTER 2025-02-21 09:20 | Emergency (ER) | payer MEDICARE ==
[2025-02-21 10:18] LABS: #Basophils 0.03 10x3/uL (0.0-0.2); #Eosinophils 0.15 10x3/uL (0.0-0.7); #Monocytes 0.35 10x3/uL (0.11-0.59); #Neutrophils 4.37 10x3/uL (1.40-6.50); %Basophils 0.5 % (0.0-1.0); %Eosinophils 2.5 % (0.0-10.0); %Lymphocytes 18.8 % (21.0-51.0); %Monocytes 5.8 % (0.0-10.0); %Neutrophils 72.1 % (42.0-75.0); Hematocrit 21.5 % (42.0-52.0); Hemoglobin 6.5 g/dL (14.0-18.0); Mean Corpuscular Hemoglobin 23.7 pg (27.0-31.0); Mean Corpuscular Volume 78.5 fL (78.0-98.0); Platelet Count 389 10x3/uL (130-400); Red Blood Cell (RBC) Count 2.74 mill/uL (4.70-6.10); White Blood Cell (WBC) Count 6.06 10x3/uL (4.8-10.8)
[2025-02-21 10:44] LABS: ALT (SGPT) 9 U/L (Less than 45); AST (SGOT) 21 U/L (11-34); Albumin 3.5 g/dL (3.1-4.5); Alkaline Phosphatase 100 U/L (40-110); Anion Gap 14 mmol/L (10-20); BUN (Urea Nitrogen) 11 mg/dL (8.4-25.7); Bilirubin, Total 0.3 mg/dL (0.3-1.2); Calc. Creatinine Clearance 0 mL/min (70-130); Calcium 8.5 mg/dL (7.8-10.44); Carbon Dioxide 21 mmol/L (23-31); Chloride 105 mmol/L (98-107); Globulin 3.6 g/dL (2.4-3.5); Glucose 189 mg/dL (80-115); Potassium 4.1 mmol/L (3.5-5.1); Sodium 136 mmol/L (136-145)
== END 2025-02-21 15:57 | disposition home or self-care (01) ==
LOC: ERS 09:20
DX: D64.9 Anemia, unspecified (principal); I11.0 Hypertensive heart disease with heart failure; I50.9 Heart failure, unspecified; E11.9 Type 2 diabetes mellitus without complications; Z86.73 Personal history of transient ischemic attack (TIA), and cerebral infarction without residual deficits; Z87.891 Personal history of nicotine dependence
CPT/HCPCS: 36430; 80053; 85025; 86850; 86900; 86901; 99284; P9016

== ENCOUNTER 2025-03-05 10:21 | Inpatient (IN) | payer MEDICARE ==
[2025-03-05 10:51] LABS: #Basophils 0.04 10x3/uL (0.0-0.2); #Eosinophils 0.24 10x3/uL (0.0-0.7); #Monocytes 0.49 10x3/uL (0.11-0.59); #Neutrophils 4.07 10x3/uL (1.40-6.50); %Basophils 0.7 % (0.0-1.0); %Eosinophils 3.9 % (0.0-10.0); %Lymphocytes 20.3 % (21.0-51.0); %Monocytes 8.0 % (0.0-10.0); %Neutrophils 66.8 % (42.0-75.0); Hematocrit 26.1 % (42.0-52.0); Hemoglobin 7.9 g/dL (14.0-18.0); Mean Corpuscular Hemoglobin 24.1 pg (27.0-31.0); Mean Corpuscular Volume 79.6 fL (78.0-98.0); Platelet Count 425 10x3/uL (130-400); Red Blood Cell (RBC) Count 3.28 mill/uL (4.70-6.10); White Blood Cell (WBC) Count 6.10 10x3/uL (4.8-10.8)
[2025-03-05] MEDS ORDERED: Ondansetron PF 4 MG/2 ML Vial ONE (10:52)
[2025-03-05] MEDS ORDERED: Pantoprazole 40 MG VIAL ONE (10:52)
[2025-03-05 11:11] LABS: ALT (SGPT) 8 U/L (Less than 45); AST (SGOT) 28 U/L (11-34); Albumin 3.8 g/dL (3.1-4.5); Alkaline Phosphatase 115 U/L (40-110); Anion Gap 15 mmol/L (10-20); BUN (Urea Nitrogen) 11 mg/dL (8.4-25.7); Bilirubin, Total 0.4 mg/dL (0.3-1.2); Calc. Creatinine Clearance 0 mL/min (70-130); Calcium 9.2 mg/dL (7.8-10.44); Carbon Dioxide 21 mmol/L (23-31); Chloride 105 mmol/L (98-107); Globulin 4.3 g/dL (2.4-3.5); Glucose 135 mg/dL (80-115); Lipase 19 U/L (8-78); Potassium 3.7 mmol/L (3.5-5.1); Sodium 137 mmol/L (136-145)
[2025-03-05 11:18] LABS: INR-International Normal Ratio 1.1; PTT 41.8 sec (22.9-36.1); Prothrombin Time 13.9 sec (12.0-14.7)
[2025-03-05 11:43] LABS: Bacteria/HPF None Seen HPF (None Seen); CAUTI Indications for Culture Dysuria,urgency,freq; Glucose, Urine (Dipstick) Normal (Negative); Leukocyte Negative Leu/uL (Negative); Protein, Urine (Dipstick) 10 mg/dL (Neg-Trace); RBC/HPF None Seen HPF (0-3); Specific Gravity, Urine 1.018 (1.002-1.036); WBC/HPF 0-3 HPF (0-3)
[2025-03-05 12:18] LABS: Urine Culture Reflex No No
[2025-03-05] MEDS ORDERED: Ondansetron PF 4 MG/2 ML Vial IVP PRN (14:20)
[2025-03-05] MEDS ORDERED: Glucagon 1 MG/ML KIT IM PRN (14:48)
[2025-03-05] MEDS ORDERED: Dextrose 50% Abboject 50 ML SYRINGE SLOW IVP PRN (14:48)
[2025-03-05 15:35] VITALS: BMI 34.1
[2025-03-05] MEDS ORDERED: Nitroglycerin 0.4 MG TAB (25 Tab Bottle) SL PRN (15:51)
[2025-03-05] MEDS: FLU (Fluad Triv) 25-26 (65UP)PF 45 MCG/0.5 ML Syringe IM ONE (16:34)
[2025-03-05] MEDS: PNEUMOC 20-VAL CONJ-DIP CRM/PF 0.5 ML SYRINGE IM ONE (16:34)
[2025-03-05 18:44] LABS: Hematocrit 22.3 % (42.0-52.0)
[2025-03-05] MEDS: Pantoprazole 40 MG VIAL IVP SCH (20:55)
[2025-03-06 05:06] LABS: #Basophils 0.03 10x3/uL (0.0-0.2); #Eosinophils 0.21 10x3/uL (0.0-0.7); #Monocytes 0.42 10x3/uL (0.11-0.59); #Neutrophils 3.28 10x3/uL (1.40-6.50); %Basophils 0.6 % (0.0-1.0); %Eosinophils 4.0 % (0.0-10.0); %Lymphocytes 24.2 % (21.0-51.0); %Monocytes 8.1 % (0.0-10.0); %Neutrophils 62.9 % (42.0-75.0); Hematocrit 21.9 % (42.0-52.0); Hemoglobin 6.5 g/dL (14.0-18.0); Mean Corpuscular Hemoglobin 23.9 pg (27.0-31.0); Mean Corpuscular Volume 80.5 fL (78.0-98.0); Platelet Count 367 10x3/uL (130-400); Red Blood Cell (RBC) Count 2.72 mill/uL (4.70-6.10); White Blood Cell (WBC) Count 5.21 10x3/uL (4.8-10.8)
[2025-03-06 05:19] LABS: ALT (SGPT) Less than 7 U/L (Less than 45); AST (SGOT) 17 U/L (11-34); Albumin 3.1 g/dL (3.1-4.5); Alkaline Phosphatase 99 U/L (40-110); Anion Gap 11 mmol/L (10-20); BUN (Urea Nitrogen) 10 mg/dL (8.4-25.7); Bilirubin, Total 0.4 mg/dL (0.3-1.2); Calc. Creatinine Clearance 134 mL/min (70-130); Calcium 8.7 mg/dL (7.8-10.44); Carbon Dioxide 26 mmol/L (23-31); Chloride 105 mmol/L (98-107); Globulin 3.5 g/dL (2.4-3.5); Glucose 127 mg/dL (80-115); Iron 22 ug/dL (65-175); Iron Binding Capacity, Total 358 mcg/dL (261-462); Potassium 3.4 mmol/L (3.5-5.1); Sodium 139 mmol/L (136-145)
[2025-03-06 05:21] LABS: Iron 26 ug/dL (65-175); Iron Binding Capacity, Total 349 mcg/dL (261-462)
[2025-03-06] MEDS ORDERED: PROPOFOL 20 ML ONE ×2 (07:46)
[2025-03-06] MEDS ORDERED: GLYCOPYRROLATE/PF 0.2 MG/ML VIAL ONE (07:52)
[2025-03-06] MEDS ORDERED: PHENYLEPHRINE-NS 100 MCG/ML 10 ML SYRINGE ONE (07:52)
[2025-03-06] MEDS ORDERED: Lidocaine 1% PF 5 ML VIAL ONE (07:52)
[2025-03-06] MEDS ORDERED: Etomidate 40 MG (20 mL) VIAL ONE (07:53)
[2025-03-06] MEDS: Metoprolol Succinate XL 100 MG ER.TAB PO SCH (09:22)
[2025-03-06] MEDS: Pantoprazole 40 MG VIAL IVP SCH (09:23)
[2025-03-06] MEDS: Losartan 25 MG TAB PO SCH (09:23)
[2025-03-06] MEDS: GoLYTELY 4,000 ml Bottle PO SCH (16:16)
[2025-03-06 16:50] LABS: Hematocrit 28.1 % (42.0-52.0)
[2025-03-06 17:19] LABS: Hemoglobin 8.4 g/dL (14.0-18.0)
[2025-03-07 07:09] LABS: Anion Gap 14 mmol/L (10-20); BUN (Urea Nitrogen) 7 mg/dL (8.4-25.7); Calc. Creatinine Clearance 136 mL/min (70-130); Calcium 9.2 mg/dL (7.8-10.44); Carbon Dioxide 26 mmol/L (23-31); Chloride 103 mmol/L (98-107); Glucose 137 mg/dL (80-115); Potassium 3.5 mmol/L (3.5-5.1); Sodium 139 mmol/L (136-145)
[2025-03-07] MEDS ORDERED: PROPOFOL 40 ML ONE (11:00)
[2025-03-07] MEDS ORDERED: Lidocaine 1% PF 5 ML VIAL ONE (11:01)
[2025-03-07] MEDS ORDERED: GLYCOPYRROLATE/PF 0.2 MG/ML VIAL ONE (12:00)
[2025-03-07 12:23] LABS: Hematocrit 29.0 % (42.0-52.0); Hemoglobin 9.0 g/dL (14.0-18.0)
[2025-03-07] MEDS ORDERED: PHENYLEPHRINE-NS 100 MCG/ML 10 ML SYRINGE ONE (12:42)
[2025-03-08 05:57] LABS: Anion Gap 12 mmol/L (10-20); BUN (Urea Nitrogen) 4 mg/dL (8.4-25.7); Calc. Creatinine Clearance 126 mL/min (70-130); Calcium 8.8 mg/dL (7.8-10.44); Carbon Dioxide 24 mmol/L (23-31); Chloride 104 mmol/L (98-107); Glucose 122 mg/dL (80-115); Potassium 3.3 mmol/L (3.5-5.1); Sodium 137 mmol/L (136-145)
[2025-03-08] MEDS: GoLYTELY 4,000 ml Bottle PO SCH (14:42)
[2025-03-09 05:24] LABS: Anion Gap 15 mmol/L (10-20); BUN (Urea Nitrogen) Less than 4 mg/dL (8.4-25.7); Calc. Creatinine Clearance 144 mL/min (70-130); Calcium 8.3 mg/dL (7.8-10.44); Carbon Dioxide 24 mmol/L (23-31); Chloride 104 mmol/L (98-107); Glucose 118 mg/dL (80-115); Potassium 2.8 mmol/L (3.5-5.1); Sodium 140 mmol/L (136-145)
[2025-03-09] MEDS ORDERED: PROPOFOL 20 ML ONE (07:29)
[2025-03-09] MEDS ORDERED: Etomidate 40 MG (20 mL) VIAL ONE ×2 (07:58→09:50)
[2025-03-09] MEDS: Potassium Chloride 20 MEQ in Premix 1 BAG IVPB SCH (13:32)
[2025-03-10 05:37] LABS: Anion Gap 10 mmol/L (10-20); BUN (Urea Nitrogen) 4 mg/dL (8.4-25.7); Calc. Creatinine Clearance 143 mL/min (70-130); Calcium 8.4 mg/dL (7.8-10.44); Carbon Dioxide 25 mmol/L (23-31); Chloride 109 mmol/L (98-107); Glucose 130 mg/dL (80-115); Potassium 3.5 mmol/L (3.5-5.1); Sodium 140 mmol/L (136-145)
[2025-03-10] MEDS: Ferrous Sulfate 325 MG TAB PO SCH (08:17)
[2025-03-10] MEDS: Aspirin 81 mg Enteric Coated Tablet PO SCH (08:18)
[2025-03-10 15:54] VITALS: BP 152/70; TEMP 98.8
[2025-03-11 11:50] LABS: EliA Celiac New Method **** NEW METHOD ****
== END 2025-03-10 18:50 | disposition home or self-care (01) | DRG 379 ==
LOC: ERS 10:21 → 2NO 13:35
PROVIDERS: ADMIT Internal Medicine; ATTEND Internal Medicine
PROC: 3E02340 Introduction of Influenza Vaccine into Muscle, Percutaneous Approach (ICD-10-PCS; 2025-03-05)
PROC: 3E0234Z Introduction of Serum, Toxoid and Vaccine into Muscle, Percutaneous Approach (ICD-10-PCS; 2025-03-05)
PROC: 0DJ08ZZ Inspection of Upper Intestinal Tract, Via Natural or Artificial Opening Endoscopic (ICD-10-PCS; principal; 2025-03-06)
PROC: 0DJD8ZZ Inspection of Lower Intestinal Tract, Via Natural or Artificial Opening Endoscopic (ICD-10-PCS; 2025-03-07)
PROC: 0DJD8ZZ Inspection of Lower Intestinal Tract, Via Natural or Artificial Opening Endoscopic (ICD-10-PCS; 2025-03-09)
DX: K92.1 Melena (principal); K44.9 Diaphragmatic hernia without obstruction or gangrene; K57.30 Diverticulosis of large intestine without perforation or abscess without bleeding; I25.10 Atherosclerotic heart disease of native coronary artery without angina pectoris; Z98.890 Other specified postprocedural states; Z86.73 Personal history of transient ischemic attack (TIA), and cerebral infarction without residual deficits; E11.51 Type 2 diabetes mellitus with diabetic peripheral angiopathy without gangrene; Z72.0 Tobacco use; E11.65 Type 2 diabetes mellitus with hyperglycemia; H54.7 Unspecified visual loss; D50.9 Iron deficiency anemia, unspecified; E87.6 Hypokalemia; R33.9 Retention of urine, unspecified; I10 Essential (primary) hypertension; K64.9 Unspecified hemorrhoids; Z79.899 Other long term (current) drug therapy
CPT/HCPCS: 36415; 36416; 36430; 74177; 80048; 80053; 81001; 82728; 83516; 83540; 83550; 83690; 85014; 85018; 85025; 85046; 85610; 85730; 86850; 86900; 86901; 96374; 96375; J2405; J2470; J2704; J3010; J3480; J3490; P9016

== ENCOUNTER 2025-05-07 14:14 | Inpatient (IN) | payer MEDICARE ==
[2025-05-07] MEDS ORDERED: Nitroglycerin 2% Ointment 1 INCH/1 GM Packet ONE (14:30)
[2025-05-07] MEDS ORDERED: Furosemide 40 MG (4 mL) VIAL ONE (14:30)
[2025-05-07 14:55] LABS: Actual Bicarbonate (HCO3a) 23.0 mEq/L (22-28); Analyzer IN Cardio ER; Base Excess (BEa) -2.0 mEq/L (-2.0 to +3.0); CO2 Tension 40.2 mmHg (35.0-45.0); Calcium, Ionized (arterial) 1.13 mmol/L (1.12-1.30); Hematocrit-ABG 25 % (42.0-52.0); Hemoglobin (Hb) 8.4 g/dL (14.0-18.0); O2 Tension (PaO2), arterial 56.7 mmHg (> 70.0); Potassium - ABG Lab 3.16 mmol/L (3.70-5.30); Puncture Site Right Brachial art; pH, Arterial 7.375 (7.35-7.45)
[2025-05-07 15:02] LABS: #Basophils 0.05 10x3/uL (0.0-0.2); #Eosinophils 0.19 10x3/uL (0.0-0.7); #Monocytes 0.56 10x3/uL (0.11-0.59); #Neutrophils 5.86 10x3/uL (1.40-6.50); %Basophils 0.6 % (0.0-1.0); %Eosinophils 2.3 % (0.0-10.0); %Lymphocytes 17.6 % (21.0-51.0); %Monocytes 6.9 % (0.0-10.0); %Neutrophils 72.2 % (42.0-75.0); Hematocrit 27.1 % (42.0-52.0); Hemoglobin 8.2 g/dL (14.0-18.0); Mean Corpuscular Hemoglobin 23.6 pg (27.0-31.0); Mean Corpuscular Volume 77.9 fL (78.0-98.0); Platelet Count 471 10x3/uL (130-400); Red Blood Cell (RBC) Count 3.48 mill/uL (4.70-6.10); White Blood Cell (WBC) Count 8.12 10x3/uL (4.8-10.8)
[2025-05-07 15:05] LABS: Bacteria/HPF None Seen HPF (None Seen); CAUTI Indications for Culture Fever or rigors; Glucose, Urine (Dipstick) Normal (Negative); Leukocyte 500 Leu/uL (Negative); Protein, Urine (Dipstick) 300 mg/dL (Neg-Trace); RBC/HPF 0-3 HPF (0-3); Specific Gravity, Urine 1.019 (1.002-1.036); WBC/HPF 0-3 HPF (0-3)
[2025-05-07 15:06] LABS: Urine Culture Reflex No No
[2025-05-07 15:15] LABS: INR-International Normal Ratio 1.1; Prothrombin Time 14.1 sec (12.0-14.7)
[2025-05-07 15:16] LABS: PTT 36.9 sec (22.9-36.1)
[2025-05-07 15:17] LABS: ALT (SGPT) 17 U/L (Less than 45); AST (SGOT) 22 U/L (11-34); Albumin 3.9 g/dL (3.1-4.5); Alkaline Phosphatase 132 U/L (40-110); Anion Gap 15 mmol/L (10-20); BUN (Urea Nitrogen) 13 mg/dL (8.4-25.7); Bilirubin, Total 0.6 mg/dL (0.3-1.2); Calc. Creatinine Clearance 0 mL/min (70-130); Calcium 8.9 mg/dL (7.8-10.44); Carbon Dioxide 22 mmol/L (23-31); Chloride 105 mmol/L (98-107); Globulin 4.0 g/dL (2.4-3.5); Glucose 170 mg/dL (80-115); Magnesium 1.9 mg/dL (1.6-2.6); Potassium 3.4 mmol/L (3.5-5.1); Sodium 139 mmol/L (136-145)
[2025-05-07] MEDS ORDERED: Senokot S 8.6-50 MG TAB PO PRN (16:06)
[2025-05-07] MEDS ORDERED: Ondansetron PF 4 MG/2 ML Vial IVP PRN (16:06)
[2025-05-07] MEDS ORDERED: Dextrose 50% Abboject 50 ML SYRINGE SLOW IVP PRN (16:11)
[2025-05-07] MEDS ORDERED: Glucagon 1 MG/ML KIT IM PRN (16:11)
[2025-05-07] MEDS ORDERED: Magnesium Sulfate In Water 4 GM in Premix 1 BAG IVPB PRN (16:15)
[2025-05-07] MEDS ORDERED: Potassium Chloride 20 MEQ in Premix 1 BAG IVPB PRN (16:15)
[2025-05-07] MEDS ORDERED: Electrolyte Replacement Protocol 1 EACH FS SCH (16:15)
[2025-05-07] MEDS ORDERED: PHOS-NAK 1 PKT PACK PO PRN (16:15)
[2025-05-07] MEDS: Spironolactone 25 MG TAB PO SCH (16:49)
[2025-05-07] MEDS ORDERED: Carvedilol 6.25 MG TAB ONE (20:15)
[2025-05-07] MEDS: Sacubitril 24MG/Valsartan 26 MG TAB PO SCH (20:17)
[2025-05-07] MEDS: Carvedilol 6.25 MG TAB PO SCH (20:17)
[2025-05-08 01:47] VITALS: BMI 34.4
[2025-05-08 05:00] LABS: #Basophils 0.03 10x3/uL (0.0-0.2); #Eosinophils 0.16 10x3/uL (0.0-0.7); #Monocytes 0.62 10x3/uL (0.11-0.59); #Neutrophils 5.63 10x3/uL (1.40-6.50); %Basophils 0.4 % (0.0-1.0); %Eosinophils 2.2 % (0.0-10.0); %Lymphocytes 12.8 % (21.0-51.0); %Monocytes 8.4 % (0.0-10.0); %Neutrophils 76.1 % (42.0-75.0); Hematocrit 24.7 % (42.0-52.0); Hemoglobin 7.5 g/dL (14.0-18.0); Mean Corpuscular Hemoglobin 23.7 pg (27.0-31.0); Mean Corpuscular Volume 77.9 fL (78.0-98.0); Platelet Count 402 10x3/uL (130-400); Red Blood Cell (RBC) Count 3.17 mill/uL (4.70-6.10); White Blood Cell (WBC) Count 7.40 10x3/uL (4.8-10.8)
[2025-05-08] MEDS: Furosemide 40 MG (4 mL) VIAL SLOW IVP SCH (06:09)
[2025-05-08 06:23] LABS: Anion Gap 13 mmol/L (10-20); BUN (Urea Nitrogen) 12 mg/dL (8.4-25.7); Calc. Creatinine Clearance 129 mL/min (70-130); Calcium 8.8 mg/dL (7.8-10.44); Carbon Dioxide 25 mmol/L (23-31); Chloride 104 mmol/L (98-107); Glucose 122 mg/dL (80-115); Magnesium 1.9 mg/dL (1.6-2.6); Potassium 3.1 mmol/L (3.5-5.1); Sodium 139 mmol/L (136-145)
[2025-05-08] MEDS: Spironolactone 25 MG TAB PO SCH (09:20)
[2025-05-08] MEDS: Enoxaparin 40 MG (0.4 mL) SYRINGE SC SCH (09:21)
[2025-05-08 11:00] LABS: Potassium 3.5 mmol/L (3.5-5.1)
[2025-05-09 06:47] LABS: Anion Gap 11 mmol/L (10-20); BUN (Urea Nitrogen) 13 mg/dL (8.4-25.7); Calc. Creatinine Clearance 111 mL/min (70-130); Calcium 8.6 mg/dL (7.8-10.44); Carbon Dioxide 26 mmol/L (23-31); Chloride 102 mmol/L (98-107); Glucose 131 mg/dL (80-115); Magnesium 1.9 mg/dL (1.6-2.6); Potassium 2.9 mmol/L (3.5-5.1); Sodium 136 mmol/L (136-145)
[2025-05-09] MEDS ORDERED: Potassium Chloride 20 MEQ in Premix 1 BAG IVPB SCH (09:15)
[2025-05-09 09:31] LABS: #Basophils 0.04 10x3/uL (0.0-0.2); #Eosinophils 0.14 10x3/uL (0.0-0.7); #Monocytes 0.48 10x3/uL (0.11-0.59); #Neutrophils 2.88 10x3/uL (1.40-6.50); %Basophils 0.9 % (0.0-1.0); %Eosinophils 3.0 % (0.0-10.0); %Lymphocytes 23.8 % (21.0-51.0); %Monocytes 10.3 % (0.0-10.0); %Neutrophils 61.8 % (42.0-75.0); Hematocrit 24.6 % (42.0-52.0); Hemoglobin 7.4 g/dL (14.0-18.0); Mean Corpuscular Hemoglobin 23.5 pg (27.0-31.0); Mean Corpuscular Volume 78.1 fL (78.0-98.0); Platelet Count 393 10x3/uL (130-400); Red Blood Cell (RBC) Count 3.15 mill/uL (4.70-6.10); White Blood Cell (WBC) Count 4.66 10x3/uL (4.8-10.8)
[2025-05-09] MEDS: Ferrous Sulfate 325 MG TAB PO SCH (09:41)
[2025-05-09] MEDS: Aspirin 81 mg Enteric Coated Tablet PO SCH (09:41)
[2025-05-09] MEDS: Pantoprazole 40 MG DR.TAB PO SCH (09:41)
[2025-05-09] MEDS: Metoprolol Succinate XL 100 MG ER.TAB PO SCH (09:42)
[2025-05-10] MEDS: Acetaminophen 325 MG TAB PO PRN (00:10)
[2025-05-10 05:24] LABS: #Basophils 0.03 10x3/uL (0.0-0.2); #Eosinophils 0.22 10x3/uL (0.0-0.7); #Monocytes 0.48 10x3/uL (0.11-0.59); #Neutrophils 2.92 10x3/uL (1.40-6.50); %Basophils 0.6 % (0.0-1.0); %Eosinophils 4.6 % (0.0-10.0); %Lymphocytes 23.4 % (21.0-51.0); %Monocytes 10.0 % (0.0-10.0); %Neutrophils 61.2 % (42.0-75.0); Hematocrit 24.1 % (42.0-52.0); Hemoglobin 7.1 g/dL (14.0-18.0); Mean Corpuscular Hemoglobin 23.4 pg (27.0-31.0); Mean Corpuscular Volume 79.3 fL (78.0-98.0); Platelet Count 385 10x3/uL (130-400); Red Blood Cell (RBC) Count 3.04 mill/uL (4.70-6.10); White Blood Cell (WBC) Count 4.78 10x3/uL (4.8-10.8)
[2025-05-10 05:37] LABS: Anion Gap 11 mmol/L (10-20); BUN (Urea Nitrogen) 15 mg/dL (8.4-25.7); Calc. Creatinine Clearance 113 mL/min (70-130); Calcium 8.6 mg/dL (7.8-10.44); Carbon Dioxide 27 mmol/L (23-31); Chloride 104 mmol/L (98-107); Glucose 121 mg/dL (80-115); Magnesium 2.2 mg/dL (1.6-2.6); Potassium 3.6 mmol/L (3.5-5.1); Sodium 138 mmol/L (136-145)
[2025-05-10] MEDS: Dapagliflozin Propanediol 10 MG TAB PO SCH (09:27)
[2025-05-10 11:22] LABS: Hematocrit 24.1 % (42.0-52.0); Hemoglobin 7.3 g/dL (14.0-18.0)
[2025-05-10] MEDS: Dextromethorphan Polistirex 60 MG/10 ML ER.12 HR UDCUP PO PRN (17:17)
[2025-05-11 05:06] LABS: #Basophils 0.04 10x3/uL (0.0-0.2); #Eosinophils 0.20 10x3/uL (0.0-0.7); #Monocytes 0.59 10x3/uL (0.11-0.59); #Neutrophils 4.93 10x3/uL (1.40-6.50); %Basophils 0.6 % (0.0-1.0); %Eosinophils 2.9 % (0.0-10.0); %Lymphocytes 15.5 % (21.0-51.0); %Monocytes 8.6 % (0.0-10.0); %Neutrophils 72.1 % (42.0-75.0); Hematocrit 25.6 % (42.0-52.0); Hemoglobin 7.7 g/dL (14.0-18.0); Mean Corpuscular Hemoglobin 23.6 pg (27.0-31.0); Mean Corpuscular Volume 78.5 fL (78.0-98.0); Platelet Count 434 10x3/uL (130-400); Red Blood Cell (RBC) Count 3.26 mill/uL (4.70-6.10); White Blood Cell (WBC) Count 6.84 10x3/uL (4.8-10.8)
[2025-05-11 05:46] LABS: Anion Gap 10 mmol/L (10-20); BUN (Urea Nitrogen) 14 mg/dL (8.4-25.7); Calc. Creatinine Clearance 98 mL/min (70-130); Calcium 8.8 mg/dL (7.8-10.44); Carbon Dioxide 23 mmol/L (23-31); Chloride 107 mmol/L (98-107); Glucose 128 mg/dL (80-115); Iron 27 ug/dL (65-175); Magnesium 2.3 mg/dL (1.6-2.6); Potassium 3.5 mmol/L (3.5-5.1); Sodium 136 mmol/L (136-145)
[2025-05-11 05:58] LABS: Ferritin 30.43 ng/mL (22-322); Vitamin B12 1006.0 pg/mL (211-911)
[2025-05-11] MEDS: FLU (Fluad Triv) 25-26 (65UP)PF 45 MCG/0.5 ML Syringe IM ONE (11:51)
[2025-05-11] MEDS: PNEUMOC 20-VAL CONJ-DIP CRM/PF 0.5 ML SYRINGE IM ONE (11:52)
[2025-05-12 05:21] LABS: #Basophils 0.04 10x3/uL (0.0-0.2); #Eosinophils 0.24 10x3/uL (0.0-0.7); #Monocytes 0.65 10x3/uL (0.11-0.59); #Neutrophils 4.19 10x3/uL (1.40-6.50); %Basophils 0.6 % (0.0-1.0); %Eosinophils 3.7 % (0.0-10.0); %Lymphocytes 20.2 % (21.0-51.0); %Monocytes 10.1 % (0.0-10.0); %Neutrophils 65.1 % (42.0-75.0); Hematocrit 24.8 % (42.0-52.0); Hemoglobin 7.6 g/dL (14.0-18.0); Mean Corpuscular Hemoglobin 24.0 pg (27.0-31.0); Mean Corpuscular Volume 78.2 fL (78.0-98.0); Platelet Count 407 10x3/uL (130-400); Red Blood Cell (RBC) Count 3.17 mill/uL (4.70-6.10); White Blood Cell (WBC) Count 6.44 10x3/uL (4.8-10.8)
[2025-05-12 05:32] LABS: Anion Gap 14 mmol/L (10-20); BUN (Urea Nitrogen) 18 mg/dL (8.4-25.7); Calc. Creatinine Clearance 104 mL/min (70-130); Calcium 8.6 mg/dL (7.8-10.44); Carbon Dioxide 23 mmol/L (23-31); Chloride 102 mmol/L (98-107); Glucose 124 mg/dL (80-115); Potassium 3.4 mmol/L (3.5-5.1); Sodium 136 mmol/L (136-145)
[2025-05-12] MEDS: Furosemide 40 MG TAB PO SCH (10:00)
[2025-05-13 04:57] LABS: #Basophils 0.03 10x3/uL (0.0-0.2); #Eosinophils 0.28 10x3/uL (0.0-0.7); #Monocytes 0.57 10x3/uL (0.11-0.59); #Neutrophils 4.20 10x3/uL (1.40-6.50); %Basophils 0.5 % (0.0-1.0); %Eosinophils 4.4 % (0.0-10.0); %Lymphocytes 19.7 % (21.0-51.0); %Monocytes 9.0 % (0.0-10.0); %Neutrophils 66.1 % (42.0-75.0); Hematocrit 25.6 % (42.0-52.0); Hemoglobin 7.6 g/dL (14.0-18.0); Mean Corpuscular Hemoglobin 23.5 pg (27.0-31.0); Mean Corpuscular Volume 79.0 fL (78.0-98.0); Platelet Count 409 10x3/uL (130-400); Red Blood Cell (RBC) Count 3.24 mill/uL (4.70-6.10); White Blood Cell (WBC) Count 6.35 10x3/uL (4.8-10.8)
[2025-05-13 05:10] LABS: Anion Gap 13 mmol/L (10-20); BUN (Urea Nitrogen) 15 mg/dL (8.4-25.7); Calc. Creatinine Clearance 92 mL/min (70-130); Calcium 8.8 mg/dL (7.8-10.44); Carbon Dioxide 24 mmol/L (23-31); Chloride 104 mmol/L (98-107); Glucose 123 mg/dL (80-115); Potassium 3.9 mmol/L (3.5-5.1); Sodium 137 mmol/L (136-145)
[2025-05-13 12:29] VITALS: BP 127/66; TEMP 98
== END 2025-05-13 13:55 | disposition home or self-care (01) | DRG 291 ==
LOC: ERS 14:14 → ERHOLD 15:58 → OBS 23:55
PROVIDERS: ADMIT Family Medicine; ATTEND Internal Medicine
PROC: 5A09357 Assistance with Respiratory Ventilation, Less than 24 Consecutive Hours, Continuous Positive Airway Pressure (ICD-10-PCS; principal; 2025-05-07)
PROC: 0T2BX0Z Change Drainage Device in Bladder, External Approach (ICD-10-PCS; 2025-05-07)
DX: I11.0 Hypertensive heart disease with heart failure (principal); I50.33 Acute on chronic diastolic (congestive) heart failure; J96.01 Acute respiratory failure with hypoxia; I25.10 Atherosclerotic heart disease of native coronary artery without angina pectoris; I73.9 Peripheral vascular disease, unspecified; E11.9 Type 2 diabetes mellitus without complications; R33.9 Retention of urine, unspecified; H54.7 Unspecified visual loss; E78.5 Hyperlipidemia, unspecified; D50.9 Iron deficiency anemia, unspecified; E87.6 Hypokalemia; E83.39 Other disorders of phosphorus metabolism; K21.9 Gastro-esophageal reflux disease without esophagitis; Z86.718 Personal history of other venous thrombosis and embolism; Z98.61 Coronary angioplasty status; Z95.818 Presence of other cardiac implants and grafts; Z95.820 Peripheral vascular angioplasty status with implants and grafts; Z86.73 Personal history of transient ischemic attack (TIA), and cerebral infarction without residual deficits; I25.2 Old myocardial infarction; Z79.899 Other long term (current) drug therapy; Z79.84 Long term (current) use of oral hypoglycemic drugs; Z87.19 Personal history of other diseases of the digestive system; Z79.82 Long term (current) use of aspirin
CPT/HCPCS: 0439T; 36415; 36416; 36600; 71045; 80048; 80053; 81001; 82607; 82728; 82805; 83540; 83605; 83735; 83880; 84100; 84484; 85025; 85610; 85730; 87428; 93005; 93798; 94640; 94660; 94760; 96374; 96375; J1650; J1940; J2272; Q9957